=== PATIENT | female | born 1970 | race Hispanic/Latino ===

== ENCOUNTER 2018-03-23 16:44 | Outpatient (CLI) | payer BC | END 2018-03-23 16:45 | disposition home or self-care (01) | LOC: BICMAMMO 16:44 | PROVIDERS: ATTEND Obstetrics & Gynecology | DX: Z12.31 Encounter for screening mammogram for malignant neoplasm of breast (principal) | CPT/HCPCS: 77063; 77067 ==

== ENCOUNTER 2022-04-07 07:58 | Outpatient (CLI) | payer BC | END 2022-04-07 07:59 | disposition home or self-care (01) | LOC: BICMAMMO 07:58 | PROVIDERS: ATTEND Family Medicine | DX: Z12.31 Encounter for screening mammogram for malignant neoplasm of breast (principal) | CPT/HCPCS: 77063; 77067 ==

== ENCOUNTER 2023-07-01 07:49 | Outpatient (CLI) | payer BC | END 2023-07-01 07:50 | disposition home or self-care (01) | LOC: BICMAMMO 07:49 | PROVIDERS: ATTEND Family Medicine | DX: Z12.31 Encounter for screening mammogram for malignant neoplasm of breast (principal) | CPT/HCPCS: 77063; 77067 ==

== ENCOUNTER 2024-01-06 13:40 | Outpatient (CLI) | payer BC | END 2024-01-06 13:41 | disposition home or self-care (01) | LOC: RAD 13:40 | PROVIDERS: ATTEND Internal Medicine Rheumatology | DX: M46.1 Sacroiliitis, not elsewhere classified (principal) | CPT/HCPCS: 72202 ==

== ENCOUNTER 2024-02-03 11:07 | Outpatient (CLI) | payer BC | END 2024-02-03 11:08 | disposition home or self-care (01) | LOC: RAD 11:07 | PROVIDERS: ATTEND Internal Medicine Rheumatology | DX: M79.18 Myalgia, other site (principal); M47.812 Spondylosis without myelopathy or radiculopathy, cervical region | CPT/HCPCS: 72072 ==